=== PATIENT | female | born 1970 ===

== ENCOUNTER 2019-03-18 09:44 | Emergency (ER) | payer BC ==
[2019-03-18 10:01] VITALS: BP 146/65
--- NOTE | 2019-03-18 10:05 | Emergency Department Report ---
- General Chief complaint: Skin Rash Stated complaint: RT SIDE PAIN/RASH/ITCHING/BURNING Time Seen by Provider: 03/18/19 10:00 Source: patient Mode of arrival: Ambulatory Limitations: No Limitations - History of Present Illness Initial comments: pt is a 48 yo female who presents to the ED with c/o a right sided abdominal rash that began this morning at 2 AM this morning. states it is itching, burning, painful, and tingling. states it hurts for her clothes to touch it. she denies every having before. denies getting the shingles vaccine. PMHx CHF, DM. no allergies to meds. hx of hysterectomy. - Related Data Previous Rx's Medication Instructions Recorded Last Taken Type Acetaminophen/Codeine [Tylenol 1 tab PO Q6H PRN #12 tab 03/18/19 Unknown Rx /Codeine # 3 tab] Lidocaine [Lidocaine GEL] 1 applicatio TP TID PRN #1 03/18/19 Unknown Rx gel..gram. valACYclovir [Valtrex] 1,000 mg PO TID 7 Days #42 tab 03/18/19 Unknown Rx Allergies Allergy/AdvReac Type Severity Reaction Status Date / Time No Known Allergies Allergy Unverified 11/08/15 16:09 Abscess Boil HPI - HPI Chief Complaint: Skin Rash Stated Complaint: RT SIDE PAIN/RASH/ITCHING/BURNING Time Seen by Provider: 03/18/19 10:00 Home Medications: Previous Rx's Medication Instructions Recorded Last Taken Type Acetaminophen/Codeine [Tylenol 1 tab PO Q6H PRN #12 tab 03/18/19 Unknown Rx /Codeine # 3 tab] Lidocaine [Lidocaine GEL] 1 applicatio TP TID PRN #1 03/18/19 Unknown Rx gel..gram. valACYclovir [Valtrex] 1,000 mg PO TID 7 Days #42 tab 03/18/19 Unknown Rx Allergies/Adverse Reactions: Allergies Allergy/AdvReac Type Severity Reaction Status Date / Time No Known Allergies Allergy Unverified 11/08/15 16:09 ED Review of Systems ROS: Stated complaint: RT SIDE PAIN/RASH/ITCHING/BURNING Other details as noted in HPI Comment: All other systems reviewed and negative ED Past Medical Hx - Past Medical History Previous Medical History?: Yes Hx Hypertension: Yes Hx Congestive Heart Failure: Yes Hx Diabetes: Yes Additional medical history: high cholesterol. vertigo - Surgical History Past Surgical History?: Yes Hx Internal Defibrillator: Yes Additional Surgical History: hysterectomy. x 2. adhesion removal - Social History Smoking Status: Never Smoker Substance Use Type: None - Medications Home Medications: Home Medications Medication Instructions Recorded Confirmed Last Taken Type Acetaminophen/Codeine [Tylenol 1 tab PO Q6H PRN #12 tab 03/18/19 Unknown Rx /Codeine # 3 tab] Lidocaine [Lidocaine GEL] 1 applicatio TP TID PRN #1 03/18/19 Unknown Rx gel..gram. valACYclovir [Valtrex] 1,000 mg PO TID 7 Days #42 tab 03/18/19 Unknown Rx ED Physical Exam - General Limitations: No Limitations General appearance: alert, in no apparent distress - Head Head exam: Present: atraumatic, normocephalic - Eye Eye exam: Present: normal appearance - ENT ENT exam: Present: mucous membranes moist - Neurological Exam Neurological exam: Present: alert, oriented X3 - Psychiatric Psychiatric exam: Present: normal affect, normal mood - Skin Skin exam: Present: warm, dry, other (vesicules and macules present to the right lateral ribs in a dermatomal distribution, painful to touch) ED Course Vital Signs 03/18/19 09:58 Temperature 98.4 F Pulse Rate 59 L Respiratory 18 Rate Blood Pressure 146/65 O2 Sat by Pulse 98 Oximetry ED Medical Decision Making - Medical Decision Making pt is a 48 yo female who presents to the ED with c/o a right sided abdominal rash that began this morning at 2 AM this morning. states it is itching, burning, painful, and tingling. states it hurts for her clothes to touch it. she denies every having before. denies getting the shingles vaccine. PMHx CHF, DM. no allergies to meds. hx of hysterectomy. VSS. on exam: vesicules and macules present to the right lateral ribs in a dermatomal distribution, painful to touch. Examination consistent with shingles rash. pt given prescription for lidocaine gel, Tylenol with codeine, valacyclovir. advised pt to please use medication as prescribed. please follow up with your primary care doctor in the next 3-5 days. discuss the shingles vaccine with your doctor. do not drive or operate heavy machinery while taking pain medication. return to the emergency room for any new or worsening symptoms. Critical care attestation.: If time is entered above; I have spent that time in minutes in the direct care of this critically ill patient, excluding procedure time. ED Disposition Clinical Impression: Shingles Qualifiers: Herpes zoster complications: without complications Qualified Code(s): B02.9 - Zoster without complications Disposition: TO HOME OR SELFCARE Is pt being admited?: No Does the pt Need Aspirin: No Condition: Stable Instructions: Herpes Zoster (ED) Additional Instructions: please use medication as prescribed. please follow up with your primary care doctor in the next 3-5 days. discuss the shingles vaccine with your doctor. do not drive or operate heavy machinery while taking pain medication. return to the emergency room for any new or worsening symptoms. Prescriptions: Lidocaine [Lidocaine GEL] 1 applicatio TP TID PRN #1 gel..gram. PRN Reason: pain/burning Acetaminophen/Codeine [Tylenol /Codeine # 3 tab] 1 tab PO Q6H PRN #12 tab PRN Reason: Pain , Severe (7-10) valACYclovir [Valtrex] 1,000 mg PO TID 7 Days #42 tab Referrals: your, primary care doctor [Other] - 3-5 Days Time of Disposition: 10:07 Print Language: LATVIAN
== END 2019-03-18 10:21 | disposition home or self-care (01) ==
LOC: ED 09:44
DX: B02.9 Zoster without complications (principal); I11.0 Hypertensive heart disease with heart failure; I50.9 Heart failure, unspecified; E11.9 Type 2 diabetes mellitus without complications; E78.00 Pure hypercholesterolemia, unspecified; Z90.710 Acquired absence of both cervix and uterus; Z79.899 Other long term (current) drug therapy
CPT/HCPCS: 99282